=== PATIENT | female | born 1955 | race Caucasian/White ===

== ENCOUNTER 2018-04-01 05:05 | Day surgery (SDC) | payer OTHER ==
[~2018-04-01 05:05] MED LIST: ATORVASTATIN CA40 MG PO; FLUOXETINE HCL20 MG PO; LISINOPRIL10 MG PO; MEMANTINE HCL10 GM PO; NABUMETONE750 MG PO; NEURONTIN300 MG PO; OMEGA-31000 MG PO; PANTOPRAZOLE SO40 MG PO; RESTORIL15 M1 PO; SYNTHROID75 MCG PO
[2018-04-01] MEDS ORDERED: ULTRACET PO (09:06)
[2018-04-01] MEDS ORDERED: MACROBID 100 M100 MG PO (09:07)
== END 2018-04-01 10:45 | disposition home or self-care (01) ==
LOC: CIR.AMB 05:05
DX: N81.3 Complete uterovaginal prolapse (principal); N39.3 Stress incontinence (female) (male)
CPT/HCPCS: 57282; 57210; 57265; 57288; C1771